=== PATIENT | female | born 1980 | race Caucasian/White ===

== ENCOUNTER 2016-11-05 16:39 | Emergency (ER) | payer OTHER | END 2016-11-05 22:11 | disposition home or self-care (01) | LOC: ER 16:39 | DX: T25.291A Burn of second degree of multiple sites of right ankle and foot, initial encounter (principal); X10.2XXA Contact with fats and cooking oils, initial encounter; K21.9 Gastro-esophageal reflux disease without esophagitis; Z79.899 Other long term (current) drug therapy; Z88.1 Allergy status to other antibiotic agents | CPT/HCPCS: 99070; 99283 ==